=== PATIENT | female | born 1980 | race Caucasian/White ===

== ENCOUNTER 2019-12-11 15:29 | Outpatient (CLI) | payer BC, SELFPAY ==
--- NOTE | ~2019-12-11 | MM_ITS ---
EXAMINATION: MM screening ron BI w nae HISTORY: Screening TECHNIQUE: Craniocaudal and mediolateral oblique 3-D tomosynthesis images were obtained and synthetic 2-D images were generated. CAD analysis was submitted and interpreted. COMPARISON: Comparison to multiple prior studies sequentially, with oldest reviewed study dated 11/2011. BREAST PARENCHYMAL COMPOSITION: There are scattered areas of fibroglandular density. FINDINGS: There is no evidence of suspicious mass, calcification, or architectural distortion to sugg est malignancy in either breast. There has been no suspicious interval change. IMPRESSION: 1. No mammographic evidence of malignancy. 2. Recommend routine screening mammography in one year. BI-RADS Category 1: Negative Reviewed, dictated and finalized at location A.
== END 2019-12-11 15:30 | disposition home or self-care (01) ==
LOC: ANHIMG 15:31
PROVIDERS: PCP Physician Assistant; Visit Provider Obstetrics & Gynecology
DX: Z12.31 Encounter for screening mammogram for malignant neoplasm of breast (principal)
CPT/HCPCS: 77063; 77067

== ENCOUNTER 2020-12-15 07:31 | Outpatient (CLI) | payer BC, SELFPAY ==
--- NOTE | ~2020-12-15 | MM_ITS ---
EXAMINATION: MM screening [facility] BI w nae HISTORY: Screening TECHNIQUE: Craniocaudal and mediolateral oblique 3-D tomosynthesis images were obtained and synthetic 2-D images were generated. CAD analysis was submitted and interpreted. COMPARISON: Comparison to multiple prior studies sequentially, with oldest reviewed study dated 11/2011. BREAST PARENCHYMAL COMPOSITION: There are scattered areas of fibroglandular density. FINDINGS: There is no evidence of suspicious mass, calcification, or architectural distortion to sugg est malignancy in either breast. There has been no suspicious interval change. IMPRESSION: 1. No mammographic evidence of malignancy. 2. Recommend routine screening mammography in one year. BI-RADS Category 1: Negative Reviewed, dictated and finalized at location A.
== END 2020-12-15 07:32 | disposition home or self-care (01) ==
LOC: ANHIMG 07:34
PROVIDERS: PCP Physician Assistant; Visit Provider Obstetrics & Gynecology
DX: Z12.31 Encounter for screening mammogram for malignant neoplasm of breast (principal)
CPT/HCPCS: 77063; 77067

== ENCOUNTER 2021-12-10 10:25 | Outpatient (CLI) | payer BC, SELFPAY ==
--- NOTE | ~2021-12-10 | MR_ITS ---
EXAMINATION: MR breast BI wo/w con INDICATION: Family history of breast cancer TECHNIQUE: Axial VIBRANT pre and dynamic post contrast, Sagittal VIBRANT post contrast, Axial T2 STIR ASSET COMPARISON: None CONTRAST: Multihance, 20 cc BREAST COMPOSITION: Scattered fibroglandular tissue FINDINGS: RIGHT BREAST: There is minimal background parenchymal enhancement. No abnormal enhancement is present after contrast administration. No pathologically enlarged axillary or internal mammary lymph nodes a re identified. A 3 mm mass in the anterior third of the upper outer quadrant of the breast demonstrat es central fat, an appearance consistent with a lymph node. LEFT BREAST: There is minimal background parenchymal enhancement. No abnormal enhancement is present after contrast administration. No pathologically enlarged axillary or internal mammary lymph nodes ar e identified. IMPRESSION: 1. Unremarkable breast MRI. Routine screening mammography is recommended. BI-RADS Category 1: Negative Reviewed, dictated and finalized at location A.
== END 2021-12-10 10:26 | disposition home or self-care (01) ==
PROVIDERS: PCP Physician Assistant; Visit Provider Obstetrics & Gynecology
DX: Z80.3 Family history of malignant neoplasm of breast (principal)
CPT/HCPCS: 77049; A9577; C8908

== ENCOUNTER 2022-01-04 21:21 | Emergency (ER) | payer BC, SELFPAY ==
[2022-01-04 21:32] VITALS: BP 158/97; PULSE 73; RESP 14; TEMP 36.6; O2SAT 100
[2022-01-04 21:43] LABS: Basophils Absolute Auto 0.1 K/mm3 (0.0-0.1); Basophils Percent Auto 0.7 % (0.2-1.2); Eosinophils Absolute Auto 0.4 K/mm3 (0-0.3); Eosinophils Percent Auto 3.6 % (0-4.4); Hematocrit 42.9 % (37.0-47.0); Hemoglobin 14.4 g/dL (12.0-15.0); Immature Granulocyte Absolute 0.02 K/mm3 (0.00-0.031); Immature Granulocyte Percent A 0.2 % (0-0.5); Lymphocytes Percent Auto 33.3 % (18.3-44.2); Mean Corpuscular HGB Conc 33.6 g/dl (32-36); Mean Corpuscular Hemoglobin 30.7 pg (26-34); Mean Corpuscular Volume 91.5 fl (80-100); Mean Platelet Volume 10.6 fl (7.4-10.4); Monocytes Absolute Auto 0.7 K/mm3 (0.1-0.6); Monocytes Percent Auto 6.7 % (2.6-8.5); Neutrophils Absolute Auto 5.8 K/mm3 (1.3-6.7); Neutrophils Percent Auto 55.5 % (45.5-73.1); Platelet Count Result 314 k/mm3 (150-375); Red Blood Count 4.69 M/mm3 (4.2-5.4); Red Cell Distribution Width 12.6 % (11.5-14.5); White Blood Count 10.5 K/mm3 (4.5-10.0)
[2022-01-04 21:55] LABS: Alanine Aminotransferase 17 U/L (6-35); Albumin Level 4.2 g/dL (3.5-5.1); Alkaline Phosphatase 77 U/L (38-126); Anion Gap 10 mmol/L (8-16); Aspartate Amino Transferase 21 U/L (14-36); Bilirubin,Total 0.6 mg/dL (0.2-1.3); Blood Urea Nitrogen 13 mg/dL (7-17); Calcium 9.1 mg/dL (8.4-10.2); Carbon Dioxide 30 mmol/L (22-30); Chloride 100 mmol/L (98-107); Estimated Glomerular Filt Rate > 60; Glucose 108 mg/dL (65-110); Lipase 90 U/L (23-300); Potassium 3.6 mmol/L (3.4-5.0); Sodium 140 mmol/L (137-145)
[2022-01-04 22:15] LABS: Appearance Urine Clear (Clear); Bilirubin Urine Negative (Negative); Blood Urine Trace-intact (Negative); Color Urine Yellow (Yellow); Glucose Urine UA Negative (Negative); Ketones Urine Negative (Negative); Leukocyte Esterase Ur Trace LEU/UL (Negative); Nitrate Urine Negative (Negative); Protein Urine Negative (Negative); Specific Grav Ur <= 1.005 (1.001-1.035); Urobilinogen Urine 0.2 mg/dL (<2.0)
[2022-01-04 22:29] LABS: Bacteria Urine Trace /hpf; Mucus Urine Rare /lpf; Squamous Epithelial Cell Urine Rare /hpf (Few); WBC Urine 0-3 /hpf
[2022-01-04 22:34] LABS: Add Urine Microscopic? YES
--- NOTE | 2022-01-04 23:00 | PC.NURSE ---
pt. to desk stating Im going somewhere else to be seen. Pt. NAD skin pink, warm, and dry
== END 2022-01-04 23:43 | disposition left against medical advice (07) ==
LOC: ANHED 23:17
PROVIDERS: Emergency Provider Emergency Medicine; PCP Physician Assistant
DX: R10.32 Left lower quadrant pain (principal)
CPT/HCPCS: 36415; 80053; 81001; 81025; 83690; 85025; 99199

== ENCOUNTER 2023-02-28 08:24 | Outpatient (CLI) | payer BC, SELFPAY ==
--- NOTE | ~2023-02-28 | MM_ITS ---
EXAMINATION: MM screening ron BI w nae HISTORY: Screening mammogram TECHNIQUE: Craniocaudal and mediolateral oblique 3-D tomosynthesis images were obtained and synthetic 2-D images were generated. CAD analysis was submitted and interpreted. COMPARISON: 12/10/2021 MR breast examination, reported negative 12/15/2020, 12/11/2019, 11/19/2018 bilateral screening mammogram examinations BREAST PARENCHYMAL COMPOSITION: There are scattered areas of fibroglandular density. FINDINGS: There is no evidence of suspicious mass, calcification, or architectural distortion to sugg est malignancy in either breast. There has been no suspicious interval change. IMPRESSION: 1. No mammographic evidence of malignancy. 2. Recommend routine screening mammography in one year. BI-RADS Category 1: Negative Reviewed, dictated and finalized at location A. STIAN SCIENCE READER
== END 2023-02-28 08:25 | disposition home or self-care (01) ==
PROVIDERS: PCP Physician Assistant; Visit Provider Obstetrics & Gynecology
DX: Z12.31 Encounter for screening mammogram for malignant neoplasm of breast (principal)
CPT/HCPCS: 77063; 77067

== ENCOUNTER 2023-07-10 09:16 | Outpatient (CLI) | payer BC, SELFPAY ==
--- NOTE | 2023-07-18 18:18 | WPDHOMESLEEP ---
Sleep Study - Home Unattended Date of Study: 07/10/23 Ordering Provider: Cheryl Sanchez, AMX Interpreting Provider: Naila Parker, DO Home Sleep Study Type: Watch PAT Height: 1.7 m Neck Circumference (inches): 14.5 [place]: 13 Reason for Sleep Study Daytime hypersomnia Sleep History The patient is a 43-year-old female with anxiety, history of tobacco use and obesity that had a sleep study ordered by her primary care for evaluation of sleep apnea. The patient denies awakening from sleep short of breath. She denies awakening at night with heartburn, belching or cough. She occasionally snores but it is never loud enough that others complain. She denies having trouble sleeping when she has a cold. She denies waking up gasping for air throughout the night. She denies having breathing problems at night observed by herself or others. She rarely sweats excessively at night. She denies having heart palpitations or irregular heartbeats during the night. She frequently falls asleep during the day but never while driving. She denies sleep paralysis, cataplexy and hypnagogic / hypnopompic hallucinations. She occasionally has trouble at school or work due to sleepiness. She denies feeling afraid of going to sleep. She denies having nightmares. She occasionally remembers her dreams. She frequently has thoughts racing through her mind. She denies feeling sad or depressed. She frequently has anxiety. She denies having muscular tension. She denies noticing parts of her body jerk. She denies kicking during the night. She denies having crawling and aching feelings in her legs and denies having leg pain during the night. She denies grinding her teeth during sleep and denies awakening with morning jaw pain. She denies being bothered by pain during the day and denies being awakened by pain during the night. She denies waking up feeling stiff in the morning. She denies waking up with sore or achy muscles. She denies waking up with pain in the neck, spine and other joints. She goes to bed at 11:00 p.m. on both weekdays and weekends. She is able to fall asleep relatively quickly. She does not typically wake up throughout the night. She wakes up at 5:45 a.m. on weekdays and at 7:00 a.m. on the weekends. She typically gets 6-7 hours of sleep per night. She does not stay in bed after waking up in the morning. She currently lives with her and 3 children. She denies consuming any caffeinated beverages within 2 hours of bedtime. She denies engaging in physical exercise before bedtime. She will watch television before falling asleep. She will take naps in afternoon or the evening but they are not refreshing. She consumes 1 cup of coffee and 1 cup of tea daily. She quit smoking cigarettes over 10 years ago. She denies alcohol and recreational drug PMFSH Past Medical History Medical History Anxiety disorder Bronchitis History of endometrial biopsy no hyperplasia; polyp noted- 06/13/2020 hyperplasia; polyp noted- 12/31/2019 Surgical History Surgical History H/O gynecological procedure Mirena IUD Insertion 08/04/2020 H/O gynecological procedure hscope/ D&C/ polyp History of colposcopy 11/28/2018 - 11/12/2014 Family History Family History Mother Breast cancer Localized scleroderma Social History Social History Smoking status: Former smoker Alcohol intake: current Alcohol use details: Occasionally Substance use: never Substance use type: does not use Lack of Transportation: No Lack of Food: Never True Current Housing: I Have Housing Concerned About Future Housing: No Difficulty Paying Gas/Electric Bills: No Difficulty Paying for Meds: No 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
== END 2023-07-11 07:30 | disposition home or self-care (01) ==
LOC: ANHCSM 09:16
PROVIDERS: PCP Physician Assistant; Visit Provider Physician Assistant
DX: G47.30 Sleep apnea, unspecified (principal); G47.19 Other hypersomnia
CPT/HCPCS: 95800

== ENCOUNTER 2024-02-14 13:27 | Outpatient (CLI) | payer BC, SELFPAY ==
--- NOTE | ~2024-02-14 | MMUS_ITS ---
EXAMINATION: MM diagnostic ron BI w nae, US breast LT limited HISTORY: Palpable left breast abnormality TECHNIQUE: Additional 3-D tomosynthesis images of the breasts were performed and synthetic 2-D images were generated. CAD analysis was submitted and interpreted. High resolution Limited left breast ultr asound was performed. COMPARISON: Comparison to multiple prior studies sequentially, with oldest reviewed study dated 09/2016. BREAST PARENCHYMAL COMPOSITION: Not dense: There are scattered areas of fibroglandular density. FINDINGS: MAMMOGRAPHIC FINDINGS: There are no suspicious masses, calcifications or architectural distortion in either breast to sugges t malignancy. ULTRASOUND: Limited left breast ultrasound: Normal heterogeneous echotexture without focal solid or cystic mass. IMPRESSION: 1. No evidence for malignancy in either breast. 2. Routine yearly screening mammogram and regular clinical breast examination are recommended. BI-RADS Category 1: Negative Reviewed, dictated and finalized at location B. [employer] IMPRESSION: 1. No evidence for malignancy in either breast. 2. Routine yearly screening mammogram and regular clinical breast examination a re recommended. BI-RADS Category 1: Negative
== END 2024-02-14 13:28 | disposition home or self-care (01) ==
LOC: ANHIMG 13:29
PROVIDERS: PCP Physician Assistant; Visit Provider Obstetrics & Gynecology
DX: N63.10 Unspecified lump in the right breast, unspecified quadrant (principal); N63.25 Unspecified lump in the left breast, overlapping quadrants
CPT/HCPCS: 76642; 77062; 77066; G0279

== ENCOUNTER 2025-01-23 01:30 | Day surgery (SDC) | payer BC, SELFPAY ==
[2025-01-07 13:54] VITALS: BMI 27.4
--- OUTSIDE RECORDS SUMMARY | 2025-01-23 02:15 | XMS_ITS | Clinical Summary ---
Author Organization [facility] [employer] Address [address] [place] [address] Care Team Providers Care First Assistant Manager Name Role Phone Surendra Estrada MD Primary Care Provider [phone] Source Comments [facility] [employer],non-owned Affiliates and Associated Physician Practices is amultiple site organization consisting of ambulatory clinics and hospital sitesin [place], [place], [place] and [place]. This disclosure is being madepursuant to the Care Everywhere program and may not contain all information available regarding this patient. Last updated 17.[facility] [employer] Allergies No known active allergies Medications * Be aware that medications may not be up to date on this document. Alwaysverify current medications with the patient. albuterol HFA (VENTOLIN HFA) 108 (90 BASE) MCG/ACT inhaler Inhale 2 Puffs by mouth every 6 hours as needed for Wheezing or Cough 1 Inhaler 05/28/2016 Active Active Problems No known active problems Social History Tobacco Use Types Packs/Day Years Used Date Smoking Tobacco: Former Comments Unknown Sex and Gender Information Value Date Recorded Sex Assigned at Female 06/07/2023 2:13 PM CDT Legal Sex Female 6:31 AM CDT Gender Identity Female 06/07/2023 2:13 PM CDT Sexual Orientation Straight 06/07/2023 2: 13 PM CDT Last Filed Vital Signs Vital Sign Reading Time Taken Comments Blood Pressure 118/72 05/28/2016 10:41 AM CDT Pulse 82 05/28/2016 10:41 AM CDT Temperature 38.1 C (100.5 F) 05/28/2016 10:41 AM CDT Respiratory Rate 18 05/28/2016 10:41 AM CDT Oxygen Saturation 97% 05/28/2016 10:41 AM CDT Inhaled Oxygen Concentration - - Weight 89.8 kg (198 lb) 05/28/2016 10:41 AM CDT Height 170.2 cm (5' 7) 05/28/2016 10:41 AM CDT Body Mass Index 31.01 05/28/2016 10:41 AM CDT Plan of Treatment Health Maintenance Due Date Last Done Comments COLOGUARD (AGES 45-75) - COL ON CA SCREENING 1979 COLON MONITORING 1979 COLONOSCOPY - COLON CA SCREENING 1979 CT COLONOGRAPHY - COLON CA SCREENING 1979 Colorectal Cancer Screening 1979 FIT - COLON CA SCREENING 1979 FLEX SIG - COLON CA SCREENING 1979 LIPID TESTING 1979 MAMMOGRAM 1979 HIV SCREENING 1994 HEPATITIS C SCREENING 03/13/1997 DTAP/TDAP/TD VACCINES (1 - Tdap) 1998 HEPATITIS B VACCINE (1 of 3 - 19+ 3-dose series) 1998 PAP SMEAR 2000 HPV VACCINE (1 - 3-dose SCDM series) 2006 Cervical Cancer Screening 2009 PAP with HPV 2009 DEPRESSION SCREENING 03/06/2024 COVID-19 VACCINE (1 - 2024-2 6 season) 2024 INFLUENZA VACCINE (#1) 2024 ZOSTER VACCINE (1 of 2) 2029 HIB VACCINE Aged Out No longer eligi ble based on patient's age to complete this topic MENINGOCOCCAL (Group B) VACC INE SHARED DECISION-MAKING Aged Out No longer eligibl e based on patient's age to complete this topic MENINGOCOCCAL GROUPS A/C/Y/W VACCINE Aged Out No longer eligible b ased on patient's age to complete this topic PNEUMOCOCCAL VACCINE Aged Out No long er eligible based on patient's age to complete this topic Insurance [employer] Care Teams First Assistant Manager Relationship Specialty Start Date End Date Surendra Estrada MD PCP - General Internal Medicine 05/28/16
--- OUTSIDE RECORDS SUMMARY | 2025-01-23 02:15 | XMS_ITS | Clinical Summary ---
Author Organization [facility] Address [facility] [place] [address] Care Team Providers Care Chief Engineer Drilling And Recovery Name Role Phone Cheryl Sanchez Primary Care Provider [phone] Allergies No known active allergies Medications No known medications Social History Tobacco Use Types Packs/Day Years Used Date Smoking Tobacco: Former Smokeless Tobacco: Former Comments No Sex and Gender Information Value Date Recorded Sex Assigned at Not on file Legal Sex Female 11:25 PM CDT Gender Identity Not on file Sexual Orientation Not on file Last Filed Vital Signs Vital Sign Reading Time Taken Comments Blood Pressure 145/83 01/04/2022 11:37 PM CDT Pulse 69 01/04/2022 11:37 PM CDT Temperature 36.6 C (97.9 F) 01/04/2022 11:37 PM CDT Respiratory Rate 16 01/04/2022 11:37 PM CDT Oxygen Saturation 99% 01/04/2022 11:37 PM CDT Inhaled Oxygen Concentration - - Weight 97.5 kg (215 lb) 01/04/2022 11:37 PM CDT Height 170.2 cm (5' 7) 01/04/2022 11:37 PM CDT Body Mass Index 33.67 01/04/2022 11:37 PM CDT Plan of Treatment Health Maintenance Due Date Last Done Comments Cervical Cancer Screening Pap Smear (Age 30 to 64) Every 3 Years 1979 Colorectal Cancer Screening Colonoscopy (10 Years) 1979 Annual Physical 1982 Hepatitis C 1997 Hepatitis B Vaccines (1 of 3 - 19+ 3-dose series) 1998 HPV Vaccines (1 - 3-dose SCDM series) 2006 Cervical Cancer Screening Pap with HPV Testing (Age 30 to 64) Every 5 Years 2009 Cervical Cancer Screening with HPV 2009 Mammogram Screening 2019 COVID-19 Vaccine ( season) 2024 01/21/2021, 06/04/2020, 05/30/2020, Additional history exists Influenza Adult (#1) 2024 12/15/2020, 12/26/2019, 12/08/2018 DTaP, Tdap and Td Vaccines (2 - Td or Tdap) 12/08/2028 12/08/2018 Hepatitis A Vaccines Aged Out No long er eligible based on patient's age to complete this topic Meningococcal B Vaccine Aged Out No l onger eligible based on patient's age to complete this topic Meningococcal Vaccine Aged Out No damaris joselyn eligible based on patient's age to complete this topic Pneumococcal Vaccine: Pediatrics (0 to 5 Years) and At-Risk Patients (6 to 49 Years) Aged Out No longer eligible based on patient's age to complete this topic RSV Immunizations Under 20 Months Aged Out No longer eligible based on patient's age to complete this topic Insurance [facility] Care Teams Chief Engineer Drilling And Recovery Relationship Specialty Start Date End Date Cheryl Sanchez PA PCP - General PHYSICIAN SPAR MACHINE OPERATOR HELPER 01/04/22
--- OUTSIDE RECORDS SUMMARY | 2025-01-23 02:15 | XMS_ITS | Clinical Summary ---
Author Organization [facility] Address [address] [place] [id number] Care Team Providers Care Screen Door Maker Name Role Phone Cheryl Sanchez Primary Care Pr ovider Allergies No known active allergies Medications ALPRAZolam (XANAX) 0.25 mg tablet Take 0.25 mg by mouth 2 (two) times a day as needed 10/23/2020 Active sertraline (ZOLOFT) 100 mg tablet Take 100 mg by mouth daily 01/10/2021 Active Active Problems Problem Noted Date Diagnosed Date Family history of breast cancer in first degree relative 01/25/2021 Family History Medical History Relation Name Comments Breast cancer Mother Prostate cancer Paternal Grandfather Relation Name Status Comments Mother Paternal Grandfather Social History Tobacco Use Types Packs/Day Years Used Date Smoking Tobacco: Never Personal Safety Answer Date Recorded Getting School Help Needed Not on file 05/18 Comments Unknown Sex and Gender Information Value Date Recorded Sex Assigned at Not on file Legal Sex Female 1:53 AM CRITICAL POWER TECHNICIAN Gender Identity Not on file Sexual Orientation Not on file Last Filed Vital Signs Vital Sign Reading Time Taken Comments Blood Pressure - - Pulse - - Temperature - - Respiratory Rate - - Oxygen Saturation - - Inhaled Oxygen Concentration - - Weight 89.8 kg (198 lb) 01/25/2021 9:05 AM CRITICAL POWER TECHNICIAN Height 167.6 cm (5' 6) 01/25/2021 9:05 AM CRITICAL POWER TECHNICIAN Body Mass Index 31.96 01/25/2021 9:05 AM CRITICAL POWER TECHNICIAN Plan of Treatment Not on file Insurance Care Teams Screen Door Maker Relationship Specialty Start Date End Date Cheryl Sanchez PA PCP - General Physician Assistant Accounting Manager 12/31/20
[2025-01-23 08:39] VITALS: BP 127/89; PULSE 68; RESP 18; TEMP 36.1; O2SAT 100
[2025-01-23] MEDS: LACTATED RINGERS 1,000 ML 150 ML IV CONT (08:51)
--- NOTE | 2025-01-23 08:57 | P.PNAN_ITS ---
Anes - Initial Pre Proc Eval Procedure: Operation Date: 01/23/25 10:00 Proposed Procedures p Screening Colonoscopy - Ventura Ponce MD Date/Time: 01/23/25 08:57 Surgeon: Ventura Ponce MD Pre Op Diagnosis: Screening Patient Data Age: 44 Gender: F Height: 1.7 m Weight: 83.3 kg Last Vital Signs Temp 36.1 C L 01/23/25 08:39 Pulse 68 01/23/25 08:39 Resp 18 01/23/25 08:39 BP 127/89 01/23/25 08:39 Pulse Ox 100 01/23/25 08:39 O2 Del Method Room Air 01/23/25 08:39 Allergies Allergy/AdvReac Type Severity Reaction Status Date / Time No Known Allergies Allergy Mild Verified 01/23/25 08:38 Home Medications ?Medication ?Instructions ?Recorded ?Confirmed ?Type alprazolam 0.25 mg tablet 0.25 mg PO DAILY 11/14/19 History levonorgestrel (Mirena) 1 device intrauterine ONCE 1 03/13/22 01/20/25 History escitalopram oxalate 10 mg tablet 10 mg PO DAILY 01/2001/23/25 History Patient hx anesthesia problems: none Family hx anesthesia problems: none Results Review: All pre-operative results and documents have been reviewed as part of the pre- operative evaluation. [facility] Past Medical History Medical History Bronchitis Anxiety disorder Surgical History Surgical History History of colposcopy 11/28/2018 - 11/12/2014 History of endometrial biopsy no hyperplasia; polyp noted- 06/13/2020 hyperplasia; polyp noted- 12/31/2019 H/O gynecological procedure hscope/ D&C/ polyp H/O gynecological procedure Mirena IUD Insertion 08/04/2020 Family History Family History Mother Breast cancer Localized scleroderma Social History Social History Smoking status: Former smoker Tobacco type: cigarettes Alcohol intake: never Alcohol use details: Occasionally Substance use: never Substance use type: does not use Do You Feel Safe in your Home?: Yes Lack of Transportation: No Lack of Food: Never True Current Housing: I Have Housing Concerned About Future Housing: No Difficulty Paying Gas/Electric Bills: No Difficulty Paying for Meds: No 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ation: High School Diploma/GED Difficulty w/ Childcare or Family Care: No Living arrangements: with family Occupation/Education: occupation Gender identity (if verbalized by the patient): Female Sexual Orientation (if Verbalized by the Patient): Straight or Heterosexual Spiritual care concerns: No Anes - Eval Final PreProcedure Day of Procedure 01/23/25 08:57 Patient weight: overweight Heart: regular rate and rhythm Lungs: clear to auscultation Airway: Mallampati scale class II Neurological: alert and oriented ASA classification: II Emergent: no Anesthetic plan: proceed Anesthesia type and monitoring: general GIVS and standard monitoring Results Review: All pre-operative results and documents have been reviewed as part of the pre- operative evaluation. Informed Consent: The patient's anesthetic plan and its attendant risks and benefits were discusse d with the patient/family/POA. Questions were solicited and answers provided to the satisfaction of the patient/family/POA.
--- NOTE | 2025-01-23 09:17 | PM.HPGS ---
History of Present Illness History of Present Illness Consent: Risks, benefits, and alternatives have been discussed and questions answered. Patient agrees to proceed with procedure. Chief complaint: Screening Narrative: Rosibel Leavitt is a 44 year old female here for first colonoscopy Review of Systems Review of Systems: All systems reviewed & are unremarkable except as noted in HPI and below PMFSH Past Medical History Medical History (Updated 01/23/25 @ 09:18 by Ventura Ponce MD) Colon cancer screening Bronchitis Anxiety disorder Surgical History Surgical History History of colposcopy 11/28/2018 - 11/12/2014 History of endometrial biopsy no hyperplasia; polyp noted- 06/13/2020 hyperplasia; polyp noted- 12/31/2019 H/O gynecological procedure hscope/ D&C/ polyp H/O gynecological procedure Mirena IUD Insertion 08/04/2020 Family History Family History Mother Breast cancer Localized scleroderma Social History Social History Smoking status: Former smoker Tobacco type: cigarettes Alcohol intake: never Alcohol use details: Occasionally Substance use: never Substance use type: does not use Do You Feel Safe in your Home?: Yes Lack of Transportation: No Lack of Food: Never True Current Housing: I Have Housing Concerned About Future Housing: No Difficulty Paying Gas/Electric Bills: No Difficulty Paying for Meds: No 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ation: High School Diploma/GED Difficulty w/ Childcare or Family Care: No Living arrangements: with family Occupation/Education: occupation Gender identity (if verbalized by the patient): Female Sexual Orientation (if Verbalized by the Patient): Straight or Heterosexual Spiritual care concerns: No Meds Home Medications and Allergies Home Medications ?Medication ?Instructions ?Recorded ?Confirmed ?Type alprazolam 0.25 mg tablet 0.25 mg PO DAILY 11/14/19 01/23/25 History levonorgestrel (Mirena) 1 device intrauterine ONCE 01/11/23 01/20/25 History escitalopram oxalate 10 mg tablet 10 mg PO DAILY 01/20/25 01/23/25 History Allergies Allergy/AdvReac Type Severity Reaction Status Date / Time No Known Allergies Allergy Mild Verified 01/23/25 08:38 Vital Signs Vital Signs - 24 hr 01/23/25 08:39 Temperature 97 F L Pulse Rate 68 Respiratory Rate 18 Blood Pressure 127/89 Pulse Oximetry 100 Oxygen Delivery Room Air Exam Const: General: comfortable and no acute distress HENMT: Face/Nose/Sinus: Normal nares present Eyes: General: appearance normal, both eyes and all related structures Resp: Auscultation: clear to auscultation bilaterally Cardio: Rate: regular rate Rhythm: regular rhythm GI: Inspection: non-distended GI Palp: Yes Soft to palpation Skin: General skin exam: normal color Extrem: General: normal to inspection Psych: Mental Status: mental status grossly normal Assessment and Plan Assessment and plan (1) Colon cancer screening: Code(s): Z12.11 - Encounter for screening for malignant neoplasm of colon Status: Acute Assessment and Plan: colonoscopy
[2025-01-23 09:29] LABS: BEDSIDEPREGUCG Negative (Negative)
[2025-01-23 09:30] VITALS: BP 92/57; PULSE 65; RESP 19; O2SAT 99
[2025-01-23 09:40] VITALS: BP 106/76; PULSE 66; RESP 20; O2SAT 100
[2025-01-23 09:50] VITALS: BP 111/75; PULSE 60; RESP 20; O2SAT 97
== END 2025-01-23 09:58 | disposition home or self-care (01) ==
PROVIDERS: PCP Physician Assistant; Referring Provider Physician Assistant; Visit Provider Internal Medicine Gastroenterology
PROC: 0DJD8ZZ Inspection of Lower Intestinal Tract, Via Natural or Artificial Opening Endoscopic (ICD-10-PCS; CPT 45378; principal; 2025-01-23 10:00)
DX: Z12.11 Encounter for screening for malignant neoplasm of colon (principal); K64.8 Other hemorrhoids; F41.9 Anxiety disorder, unspecified; Z98.890 Other specified postprocedural states; Z87.891 Personal history of nicotine dependence; Z86.0100 Personal history of colon polyps, unspecified; Z80.3 Family history of malignant neoplasm of breast
CPT/HCPCS: 45378; J2003; J2704; J7120